=== PATIENT | male | born 2000 | race Caucasian/White ===

== ENCOUNTER 2022-03-29 10:32 | Emergency (ER) | payer SELFPAY ==
[~2022-03-29] VITALS: Ht 198.1 cm; Wt 109.1 kg
[2022-03-29 10:49] VITALS: BP 156/94; TEMP 97.6
[2022-03-29 11:54] VITALS: PULSE 70
== END 2022-03-29 11:54 | disposition home or self-care (01) ==
LOC: COL.ER 10:32
DX: Z29.14 Encounter for prophylactic rabies immune globulin (principal)

== ENCOUNTER 2022-04-10 13:00 | Outpatient (RCR) | payer SELFPAY ==
[2022-04-03 13:30] VITALS: BP 116/76; PULSE 70; TEMP 98
[~2022-04-10] VITALS: Ht 198.1 cm; Wt 117.0 kg
[2022-04-10 13:32] VITALS: BP 131/70; PULSE 76; TEMP 98.4
== END 2022-04-10 17:12 | disposition home or self-care (01) ==
LOC: EUO 13:00
DX: Z23 Encounter for immunization (principal)